=== PATIENT | male | born 1950 | race Caucasian/White ===

== ENCOUNTER 2017-12-31 07:42 | Outpatient (CLI) | payer MEDICARE, BC ==
[2017-12-31 13:15] LABS: BASOPHILS % (AUTO) 0.4 %; EOSINOPHILS # (AUTO) 0.1 10^3/uL (0.0-0.7); EOSINOPHILS % (AUTO) 1.8 %; HGB - HEMOGLOBIN 15.1 g/dL (14.0-18.0); LYMPHOCYTES # (AUTO) 2.3 10^3/uL (1.5-3.5); MEAN CORPUSCULAR HEMOGLOBIN 29.1 pg (27.0-31.0); MEAN CORPUSCULAR HGB CONC 33.4 g/dL (32.0-36.0); MEAN CORPUSCULAR VOLUME 87.4 fL (80.0-94.0); MEAN PLATELET VOLUME 8.1 fL (7.4-11.4); MONOCYTES # (AUTO) 0.7 10^3/uL (0.0-1.0); MONOCYTES % (AUTO) 12.6 %; NEUTROPHILS # (AUTO) 2.7 10^3/uL (1.5-6.6); NEUTROPHILS % (AUTO) 46.2 %; PLT - PLATELET COUNT 247 10^3/uL (130-450); RED CELL DISTRIBUTION WIDTH 14.1 % (12.0-15.0)
[2017-12-31 13:24] LABS: ALBUMIN 4.1 g/dL (3.2-5.5); ALBUMIN/GLOBULIN RATIO 1.5 (1.0-2.2); ALKALINE PHOSPHATASE 61 IU/L (42-121); ALT ALANINE AMINOTRANSFERASE 15 IU/L (10-60); AST ASPARTATE AMINOTRANSFERASE 21 IU/L (10-42); BUN - BLOOD UREA NITROGEN 14 mg/dL (6-20); CALCIUM 8.6 mg/dL (8.5-10.3); CARBON DIOXIDE - CO2 28 mmol/L (21-32); CHLORIDE 104 mmol/L (101-111); CHOL/HDL RATIO 3.6 (<5.0); CHOLESTEROL 202 mg/dL; CREATININE 1.1 mg/dL (0.6-1.2); GFR - MDRD 67 (>89); GLUCOSE 103 mg/dL (70-100); HDL CHOLESTEROL 56 mg/dL; LDL CHOLESTEROL,CALCULATED 134 mg/dL; LDL/HDL RATIO 2.4 (<3.6); SODIUM 137 mmol/L (135-145); TOTAL PROTEIN 6.9 g/dL (6.7-8.2); VLDL CHOLESTEROL 12 mg/dL
[2017-12-31 13:33] LABS: PLATELET ESTIMATE, MANUAL NORMAL (130-450,000) (NORMAL); PLATELET MORPHOLOGY NORMAL APPEARANCE (NORMAL); RBC MORPHOLOGY (MULTIPLE) NORMAL APPEARANCE (NORMAL)
== END 2017-12-31 07:43 | disposition home or self-care (01) ==
LOC: LAB.WCP 07:42
PROVIDERS: ATTEND Family Medicine
DX: R03.0 Elevated blood-pressure reading, without diagnosis of hypertension (principal); R73.9 Hyperglycemia, unspecified; E78.5 Hyperlipidemia, unspecified; Z12.5 Encounter for screening for malignant neoplasm of prostate; F32.9 Major depressive disorder, single episode, unspecified; E03.9 Hypothyroidism, unspecified
CPT/HCPCS: 36415; 80053; 80061; 85025; G0103; 83721; 84153

== ENCOUNTER 2018-05-05 15:39 | Emergency (ER) | payer MEDICARE, BC ==
[2018-05-05 15:50] VITALS: BP 133/81
[2018-05-05 15:58] LABS: BILIRUBIN,URINE NEGATIVE (NEGATIVE); GLUCOSE, URINE (UA) NEGATIVE (NEGATIVE); KETONES,URINE (UA) NEGATIVE (NEGATIVE); LEUKOCYTE ESTERASE, URINE NEGATIVE (NEGATIVE); NITRITE,URINE NEGATIVE (NEGATIVE); OCCULT BLOOD,URINE NEGATIVE (NEGATIVE); PROTEIN,URINE NEGATIVE (NEGATIVE); UROBILINOGEN,URINE 0.2 (NORMAL) E.U./dL (NORMAL)
[2018-05-05 16:01] LABS: CLARITY,URINE CLEAR (CLEAR)
[2018-05-05 16:09] LABS: BASOPHILS % (AUTO) 0.3 %; HGB - HEMOGLOBIN 14.6 g/dL (14.0-18.0); LYMPHOCYTES # (AUTO) 0.6 10^3/uL (1.5-3.5); LYMPHOCYTES % (AUTO) 8.6 %; MEAN CORPUSCULAR HEMOGLOBIN 29.4 pg (27.0-31.0); MEAN CORPUSCULAR HGB CONC 32.6 g/dL (32.0-36.0); MEAN CORPUSCULAR VOLUME 90.2 fL (80.0-94.0); MEAN PLATELET VOLUME 8.3 fL (7.4-11.4); MONOCYTES # (AUTO) 0.2 10^3/uL (0.0-1.0); MONOCYTES % (AUTO) 2.5 %; NEUTROPHILS # (AUTO) 6.2 10^3/uL (1.5-6.6); NEUTROPHILS % (AUTO) 88.6 %; PLT - PLATELET COUNT 261 10^3/uL (130-450); RED BLOOD COUNT 4.96 10^6/uL (4.70-6.10)
[2018-05-05 16:21] LABS: ALBUMIN 4.4 g/dL (3.2-5.5); ALBUMIN/GLOBULIN RATIO 1.5 (1.0-2.2); CREATININE 1.2 mg/dL (0.6-1.2); TOTAL PROTEIN 7.3 g/dL (6.7-8.2)
[2018-05-05] MEDS ORDERED: KETOROLAC 60 MG/2 ML VIAL IM STA (18:02)
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
[2018-05-05] MEDS ORDERED: CYCLOBENZAPRINE 10 MG TABLET PO STA (18:28)
== END 2018-05-05 18:31 | disposition home or self-care (01) ==
LOC: ED 15:39
DX: M62.830 Muscle spasm of back (principal)
CPT/HCPCS: 36415; 80053; 81003; 83690; 85025; 96372; 99283; A9270; 81001; 87086

== ENCOUNTER 2019-02-20 09:43 | Outpatient (CLI) | payer MEDICARE, BC ==
[2019-02-20 13:19] LABS: BASOPHILS % (AUTO) 0.2 %; EOSINOPHILS # (AUTO) 0.4 10^3/uL (0.0-0.7); EOSINOPHILS % (AUTO) 6.6 %; HGB - HEMOGLOBIN 14.9 g/dL (14.0-18.0); LYMPHOCYTES # (AUTO) 2.3 10^3/uL (1.5-3.5); LYMPHOCYTES % (AUTO) 38.7 %; MEAN CORPUSCULAR HEMOGLOBIN 29.4 pg (27.0-31.0); MEAN CORPUSCULAR HGB CONC 33.1 g/dL (32.0-36.0); MEAN CORPUSCULAR VOLUME 88.7 fL (80.0-94.0); MEAN PLATELET VOLUME 8.8 fL (7.4-11.4); MONOCYTES % (AUTO) 17.2 %; NEUTROPHILS # (AUTO) 2.2 10^3/uL (1.5-6.6); NEUTROPHILS % (AUTO) 37.3 %; PLT - PLATELET COUNT 221 10^3/uL (130-450); RED BLOOD COUNT 5.07 10^6/uL (4.70-6.10); RED CELL DISTRIBUTION WIDTH 14.5 % (12.0-15.0)
[2019-02-20 13:22] LABS: PSA SCREEN (Z12.5) 0.33 ng/mL (0.000-2.000)
[2019-02-20 13:23] LABS: ALBUMIN/GLOBULIN RATIO 1.3 (1.0-2.2); ALKALINE PHOSPHATASE 82 IU/L (42-121); ALT ALANINE AMINOTRANSFERASE 15 IU/L (10-60); AST ASPARTATE AMINOTRANSFERASE 22 IU/L (10-42); BILIRUBIN,TOTAL 0.6 mg/dL (0.2-1.0); BUN - BLOOD UREA NITROGEN 13 mg/dL (6-20); CALCIUM 8.9 mg/dL (8.5-10.3); CARBON DIOXIDE - CO2 28 mmol/L (21-32); CHLORIDE 101 mmol/L (101-111); CHOL/HDL RATIO 4.2 (<5.0); CHOLESTEROL 206 mg/dL; CREATININE 1.1 mg/dL (0.6-1.2); GFR - MDRD 67 (>89); GLUCOSE 95 mg/dL (70-100); HDL CHOLESTEROL 49 mg/dL; LDL CHOLESTEROL,CALCULATED 138 mg/dL; LDL/HDL RATIO 2.8 (<3.6); SODIUM 136 mmol/L (135-145); VLDL CHOLESTEROL 19 mg/dL
[2019-02-20 13:28] LABS: FREE T3 3.44 pg/mL (2.5-3.9)
[2019-02-20 14:16] LABS: FREE T4 (FREE THYROXINE) 1.37 ng/dL (0.58-1.64)
== END 2019-02-20 09:44 | disposition home or self-care (01) ==
LOC: LAB.WCP 09:43
PROVIDERS: ATTEND Family Medicine
DX: E78.5 Hyperlipidemia, unspecified (principal); E03.9 Hypothyroidism, unspecified; Z12.5 Encounter for screening for malignant neoplasm of prostate; Z79.899 Other long term (current) drug therapy
CPT/HCPCS: 36415; 80061; 84439; 84481; G0103; 80053; 83721; 84153; 84443; 85025

== ENCOUNTER 2019-04-01 10:05 | Day surgery (SDC) | payer MEDICARE, BC ==
[2019-04-01] MEDS ORDERED: LACTATED RINGERS 1,000 ML IV ONE (10:39)
[2019-04-01] MEDS ORDERED: fentaNYL 250 MCG/5 ML VIAL IVP ONE (11:52)
[2019-04-01] MEDS ORDERED: MIDAZOLAM 2 MG/2 ML VIAL IVP ONE (11:52)
[2019-04-01 12:52] VITALS: BP 105/72
== END 2019-04-01 10:06 | disposition home or self-care (01) ==
LOC: SDS 10:05
PROVIDERS: ATTEND Internal Medicine Gastroenterology
PROC: 0DJD8ZZ Inspection of Lower Intestinal Tract, Via Natural or Artificial Opening Endoscopic (ICD-10-PCS; principal; 2019-04-01 11:15)
DX: Z12.11 Encounter for screening for malignant neoplasm of colon (principal); K21.9 Gastro-esophageal reflux disease without esophagitis
CPT/HCPCS: G0121; J3010; J7120

== ENCOUNTER 2019-12-22 11:23 | Outpatient (CLI) | payer MEDICARE, BC ==
--- NOTE | 2019-12-23 10:05 | XRAY Report ---
Reason: COUGH Procedure Date: 12/22/2019 Accession Number: [id number] / [id number] Procedure: XR - Chest 2 View X-Ray CPT Code: 75883 Final Report FULL RESULT: EXAM: CHEST RADIOGRAPHY EXAM DATE: 12/22/2019 11:37 AM. CLINICAL HISTORY: Dry cough. Ill x4 weeks. COMPARISON: 10/17/2015. TECHNIQUE: 2 views. FINDINGS: Lungs/Pleura: Apical lordotic positioning. No focal opacities or vascular congestion. No pleural effusion or pneumothorax. Normal volumes. Mediastinum: Heart and mediastinal contours are unremarkable. Bones: No acute osseous findings identified. IMPRESSION: 1. No acute cardiopulmonary findings or significant change. RADIA
== END 2019-12-22 11:24 | disposition home or self-care (01) ==
LOC: DI 11:23
PROVIDERS: ATTEND Family Medicine
DX: R05 Cough (principal)
CPT/HCPCS: 71046

== ENCOUNTER 2019-12-24 08:09 | Emergency (ER) | payer MEDICARE, BC ==
--- NOTE | 2019-12-24 08:42 | XRAY Report ---
Reason: Cough Procedure Date: 12/24/2019 Accession Number: [id number] / [id number] Procedure: XR - Chest 2 View X-Ray CPT Code: 84868 Final Report FULL RESULT: EXAM: CHEST RADIOGRAPHY EXAM DATE: 12/24/2019 08:23 AM. CLINICAL HISTORY: Cough. COMPARISON: CHEST 2 VIEW 12/22/2019 11:32 AM. TECHNIQUE: 2 views. FINDINGS: Lungs/Pleura: Small area of increased density overlying the sixth anterior right rib could be a small infiltrate. No other focal opacities evident. No pleural effusion. No pneumothorax. Normal volumes. Mediastinum: Heart and mediastinal contours are unremarkable. Other: Degenerative change in the spine with lumbar dextroscoliosis.. IMPRESSION: Possible small area of infiltrate inferior right lung. No other potentially acute findings seen. RADIA
--- NOTE | 2019-12-24 09:04 | ED Physician Documentation ---
PD HPI URI - Stated complaint Stated Complaint: COUGH - Chief complaint Chief Complaint: Resp - History obtained from History obtained from: Patient - History of Present Illness Timing - onset: How many weeks ago (4) Timing duration: Weeks (4) Timing details: Gradual onset, Still present Associated symptoms: Productive cough (now somewhat productive with clear/white sputum). No: Fever Contributing factors: No: Sick contact, Travel, COPD / asthma Review of Systems Constitutional: denies: Fever, Chills Nose: denies: Rhinorrhea / runny nose, Congestion Throat: denies: Sore throat Cardiac: denies: Chest pain / pressure Respiratory: reports: Dyspnea, Cough. denies: Wheezing GI: denies: Nausea, Vomiting, Diarrhea Musculoskeletal: denies: Extremity swelling Neurologic: denies: Generalized weakness PD PAST MEDICAL HISTORY - Past Medical History Past Medical History: Yes Cardiovascular: None Respiratory: None Endocrine/Autoimmune: HyPOthyroidism GI: None : None HEENT: Other Psych: Depression Musculoskeletal: Osteoarthritis, Chronic back pain Derm: None - Past Surgical History Past Surgical History: Yes General: Appendectomy Ortho: ACL reconstruction - Present Medications Home Medications: Ambulatory Orders Medication Instructions Recorded Confirmed Levothyroxine Sodium [Synthroid] 175 mcg PO DAILY 08/05/13 04/01/19 Bupropion HCl [Wellbutrin Xl] 300 mg PO DAILY 10/17/15 04/01/19 Dutasteride [Avodart] 0.5 mg PO DAILY 10/17/15 04/01/19 Aspirin 81 mg PO DAILY 03/31/19 03/31/19 DULoxetine [Cymbalta] 20 mg PO DAILY 03/31/19 03/31/19 Doxycycline Monohydrate 100 mg PO BID #14 tablet 12/24/19 dexAMETHasone [Decadron] 4 mg PO DAILY #5 tablet 12/24/19 guaiFENesin/CODEINE [Robitussin AC] 10 ml PO Q6H PRN #240 ml 12/24/19 - Allergies Allergies/Adverse Reactions: Allergies Allergy/AdvReac Type Severity Reaction Status Date / Time No Known Drug Allergies Allergy Verified 12/24/19 08:16 - Social History Does the pt smoke?: No Smoking Status: Never smoker Does the pt drink ETOH?: Yes Does the pt have substance abuse?: No - Immunizations Immunizations are current?: No Immunizations: TDAP >10years/unknown - POLST Patient has POLST: No PD ED PE NORMAL - Vitals Vital signs reviewed: Yes - General General: Alert and oriented X 3, No acute distress, Well developed/nourished - HEENT HEENT: Pharynx benign - Neck Neck: Supple, no meningeal sign, No adenopathy - Cardiac Cardiac: RRR, No murmur - Respiratory Respiratory: Clear bilaterally - Derm Derm: Normal color, Warm and dry - Extremities Extremities: No edema, No calf tenderness / cord - Neuro Neuro: Alert and oriented X 3, No motor deficit, Normal speech Results - Vitals Vitals: Vital Signs - 24 hr 12/24/19 09:36 Temperature 36.5 C Heart Rate 68 Respiratory 15 Rate Blood Pressure 128/72 O2 Saturation 99 Oxygen O2 Source Room air - Rads (name of study) chest xray Radiology: Prelim report reviewed (possible small infiltrate right lower), See rad report PD MEDICAL DECISION MAKING - ED course Complexity details: considered differential, d/w patient Departure - Departure Disposition: 01 Home, Self Care Clinical Impression: Persistent cough, Infiltrate of lung present on chest x-ray Condition: Stable Record reviewed to determine appropriate education?: Yes Follow-Up: Kennedy Norton DO [Primary Care Provider] - Prescriptions: dexAMETHasone [Decadron] 4 mg PO DAILY #5 tablet Doxycycline Monohydrate 100 mg PO BID #14 tablet guaiFENesin/CODEINE [Robitussin AC] 10 ml PO Q6H PRN #240 ml PRN Reason: Cough Comments: You can continue the benzonatate (Tessalon) 3-4 times a day as needed for cough. 2 would add Robitussin with codeine to help with cough suppression. To reduce the bronchial inflammation and irritation, use the Decadron steroid daily for 5 more days. Your chest x-ray showed a small patch of infiltrate in the right lower area which could represent a mild pneumonia so add doxycycline antibiotic as well. Recheck if not improving well over the next several days to week. Discharge Date/Time: 12/24/19 09:47
[2019-12-24] MEDS ORDERED: DOXYCYCLINE 100 MG TABLET PO STA (09:25)
[2019-12-24] MEDS ORDERED: CHERRY SYRUP 10 ML UDC PO ONE (09:25)
[2019-12-24] MEDS ORDERED: DEXAMETHASONE 10 MG/ML VIAL PO STA (09:25)
[2019-12-24 09:37] VITALS: BP 128/72
== END 2019-12-24 09:47 | disposition home or self-care (01) ==
LOC: ED 08:09
DX: R05 Cough (principal); R91.8 Other nonspecific abnormal finding of lung field
CPT/HCPCS: 71046; 99283; 99284; A9270

== ENCOUNTER 2020-07-07 19:46 | Outpatient (CLI) | payer MEDICARE, BC ==
--- NOTE | 2020-07-08 12:26 | XRAY Report ---
PROCEDURE: Hip w/Pelvis 1V RT INDICATIONS: Right hip pain TECHNIQUE: AP pelvis with lateral view of the right hip. COMPARISON: CT abdomen pelvis 04/09/2014. FINDINGS: Bones: No fractures or dislocations. The hip joint spaces appear preserved. Pelvic ring appears int act. No suspicious bony lesions. There is facet arthropathy and degenerative disc disease within th e visualized lower lumbar spine. Soft tissues: The visualized bowel gas pattern is normal. No suspicious soft tissue calcifications. IMPRESSION: 1. No acute bony abnormality. Reviewed by: Francisco Dye MD on 07/08/2020 12:25 PM PDT Approved by: Francisco Dye MD on 07/08/2020 12:25 PM PDT Station ID: [id number]
--- NOTE | 2020-07-08 12:41 | XRAY Report ---
PROCEDURE: Foot 3 View RT INDICATIONS: RIGHT FOOT PAIN TECHNIQUE: 3 views of the foot were acquired. COMPARISON: None. FINDINGS: Bones: No fractures or dislocations. No suspicious bony lesions. Soft tissues: No tibiotalar joint effusion. Achilles tendon appears normal. IMPRESSION: 1. No fracture or dislocation. Reviewed by: Francisco Dye MD on 07/08/2020 12:39 PM PDT Approved by: Francisco Dye MD on 07/08/2020 12:39 PM PDT Station ID: [id number]
== END 2020-07-07 19:47 | disposition home or self-care (01) ==
LOC: DI 19:46
PROVIDERS: ATTEND Physician Assistant
DX: M79.671 Pain in right foot (principal); M25.551 Pain in right hip

== ENCOUNTER 2020-07-28 10:42 | Outpatient (CLI) | payer MEDICARE, BC | END 2020-07-28 10:43 | disposition home or self-care (01) | LOC: LAB 10:42 | PROVIDERS: ATTEND Urology | DX: Z12.5 Encounter for screening for malignant neoplasm of prostate (principal) | CPT/HCPCS: 36415; G0103; 84153 ==

== ENCOUNTER 2020-09-27 10:25 | Outpatient (CLI) | payer MEDICARE, BC | END 2020-09-27 23:59 | disposition home or self-care (01) | LOC: LAB.R 10:25 | PROVIDERS: ATTEND Family Medicine | DX: R05 Cough (principal); Z20.828 Contact with and (suspected) exposure to other viral communicable diseases ==

== ENCOUNTER 2020-12-06 09:21 | Outpatient (CLI) | payer MEDICARE, OTHER ==
--- NOTE | 2020-12-06 14:54 | XRAY Report ---
PROCEDURE: Hand 3 View RT INDICATIONS: R HAND PX TECHNIQUE: 3 views of the hand(s) acquired. COMPARISON: None FINDINGS: Bones: No fractures or dislocations. No suspicious bony lesions. Mild scattered IP degenerative na rrowing with moderate narrowing at the first CMC joint. There is mild cluster of calcifications noted along the lateral aspect of the first CMC joint. Soft tissues: No suspicious soft tissue calcifications. IMPRESSION: Degenerative changes most notable at the first CMC joint as above with adjacent calcifications. The l atter could be related to old trauma. Reviewed by: Macey Portillo MD on 12/06/2020 2:52 PM PST Approved by: Macey Portillo MD on 12/06/2020 2:52 PM PST Station ID: [id number]
== END 2020-12-06 23:59 | disposition home or self-care (01) ==
LOC: DI.N 09:21
PROVIDERS: ATTEND Physician Assistant
DX: M79.641 Pain in right hand (principal); M19.041 Primary osteoarthritis, right hand

== ENCOUNTER 2021-04-06 08:40 | Outpatient (CLI) | payer MEDICARE, OTHER ==
[2021-04-06 11:54] LABS: BASOPHILS % (AUTO) 0.7 %; EOSINOPHILS # (AUTO) 0.2 10^3/uL (0.0-0.7); EOSINOPHILS % (AUTO) 3.4 %; HCT - HEMATOCRIT 47.2 % (42.0-52.0); HGB - HEMOGLOBIN 14.8 g/dL (14.0-18.0); LYMPHOCYTES # (AUTO) 1.9 10^3/uL (1.5-3.5); LYMPHOCYTES % (AUTO) 36.1 %; MEAN CORPUSCULAR HEMOGLOBIN 28.8 pg (27.0-31.0); MEAN CORPUSCULAR HGB CONC 31.4 g/dL (32.0-36.0); MEAN PLATELET VOLUME 10.5 fL (7.4-11.4); MONOCYTES # (AUTO) 0.8 10^3/uL (0.0-1.0); NEUTROPHILS # (AUTO) 2.4 10^3/uL (1.5-6.6); NEUTROPHILS % (AUTO) 45.6 %; PLT - PLATELET COUNT 255 10^3/uL (130-450); RED BLOOD COUNT 5.13 10^6/uL (4.70-6.10); RED CELL DISTRIBUTION WIDTH 13.7 % (12.0-15.0); WHITE BLOOD COUNT 5.3 x10^3/uL (4.8-10.8)
[2021-04-06 12:13] LABS: ALBUMIN 4.4 g/dL (3.2-5.5); ALBUMIN/GLOBULIN RATIO 1.8 (1.0-2.2); ALKALINE PHOSPHATASE 77 IU/L (42-121); ALT ALANINE AMINOTRANSFERASE 16 IU/L (10-60); AST ASPARTATE AMINOTRANSFERASE 23 IU/L (10-42); BILIRUBIN,TOTAL 0.6 mg/dL (0.2-1.0); BUN - BLOOD UREA NITROGEN 22 mg/dL (6-20); CALCIUM 9.4 mg/dL (8.5-10.3); CARBON DIOXIDE - CO2 28 mmol/L (21-32); CHLORIDE 103 mmol/L (101-111); CHOL/HDL RATIO 3.7 (<5.0); CHOLESTEROL 223 mg/dL; CREATININE 1.2 mg/dL (0.6-1.2); GFR - MDRD 60 (>89); GLUCOSE 97 mg/dL (70-100); HDL CHOLESTEROL 60 mg/dL; LDL CHOLESTEROL,CALCULATED 147 mg/dL; LDL/HDL RATIO 2.5 (<3.6); POTASSIUM 4.6 mmol/L (3.5-5.0); SODIUM 141 mmol/L (135-145); TOTAL PROTEIN 6.9 g/dL (6.7-8.2); TRIGLYCERIDES 80 mg/dL; VLDL CHOLESTEROL 16 mg/dL
[2021-04-06 12:18] LABS: THYROID STIMULATING HORMONE < 0.08 uIU/mL (0.34-5.60)
[2021-04-06 12:53] LABS: FREE T4 (FREE THYROXINE) 1.38 ng/dL (0.58-1.64)
== END 2021-04-06 23:59 | disposition home or self-care (01) ==
LOC: LAB.WCP 08:40
PROVIDERS: ATTEND Family Medicine
DX: E78.5 Hyperlipidemia, unspecified (principal); E03.9 Hypothyroidism, unspecified; K21.9 Gastro-esophageal reflux disease without esophagitis; N40.1 Benign prostatic hyperplasia with lower urinary tract symptoms; N13.8 Other obstructive and reflux uropathy
CPT/HCPCS: 36415; 80053; 80061; 83721; 84153; 84439; 84443; 85025

== ENCOUNTER 2021-04-28 07:00 | Outpatient (CLI) | payer MEDICARE, OTHER | END 2021-04-28 23:59 | disposition home or self-care (01) | LOC: COV 07:00 | PROVIDERS: ATTEND Family Medicine | DX: M79.10 Myalgia, unspecified site (principal); R53.83 Other fatigue; R07.0 Pain in throat; Z20.822 Contact with and (suspected) exposure to COVID-19 ==

== ENCOUNTER 2021-05-10 08:32 | Emergency (ER) | payer MEDICARE, OTHER ==
[2021-05-10 08:47] VITALS: BP 135/78
--- NOTE | 2021-05-10 10:17 | ED Physician Documentation ---
PD HPI LOWER EXT INJURY - Stated complaint Stated Complaint: LT LEG INJ - Chief complaint Chief Complaint: Ext Problem - History obtained from History obtained from: Patient - History of Present Illness PD HPI LOW EXT INJURY LOCATION: Left, Calf Type of injury: Twist (he fell and felt abrupt pain lateral mid calf muscles. Pain with walking. No foot drop.) Worsened by: Moving, Palpating, Other (walking) Associated symptoms: No: Weakness, Numbness, Tingling Contributing factors: No: Anticoagulated, Prior ortho surgery Similar symptoms before: Follow up Recently seen: Not recently seen Review of Systems Skin: denies: Abrasion (s), Laceration (s) Neurologic: denies: Focal weakness, Numbness, Altered mental status, Headache, Head injury, LOC PD PAST MEDICAL HISTORY - Past Medical History Past Medical History: Yes Cardiovascular: None Respiratory: None Neuro: None Endocrine/Autoimmune: HyPOthyroidism GI: None : None HEENT: Other Psych: Depression Musculoskeletal: Osteoarthritis, Chronic back pain Derm: None - Past Surgical History Past Surgical History: Yes General: Appendectomy Ortho: ACL reconstruction - Present Medications Home Medications: Ambulatory Orders Medication Instructions Recorded Confirmed Levothyroxine Sodium [Synthroid] 175 mcg PO DAILY 08/05/13 05/10/21 Bupropion HCl [Wellbutrin Xl] 300 mg PO DAILY 10/17/15 05/10/21 Aspirin 81 mg PO DAILY 03/31/19 05/10/21 DULoxetine [Cymbalta] 20 mg PO DAILY 03/31/19 05/10/21 HYDROcod/ACETAM 5/325 [Acampo 5/325] 1 ea PO Q6H PRN #10 tablet 05/10/21 - Allergies Allergies/Adverse Reactions: Allergies Allergy/AdvReac Type Severity Reaction Status Date / Time No Known Drug Allergies Allergy Verified 05/10/21 08:47 - Social History Does the pt smoke?: No Smoking Status: Never smoker Does the pt drink ETOH?: Yes Does the pt have substance abuse?: No - Immunizations Immunizations are current?: No Immunizations: TDAP >10years/unknown - POLST Patient has POLST: No PD ED PE NORMAL - Vitals Vital signs reviewed: Yes - General General: Alert and oriented X 3, No acute distress (limping gait into ER room. ), Well developed/nourished - HEENT HEENT: Atraumatic - Neck Neck: Supple, no meningeal sign, No bony TTP - Derm Derm: Normal color, Warm and dry - Extremities Extremities: Other (left lateral mid calf with some swelling and tenderness. Not tendeer nor any deformity at lower third Tendon area. ) - Neuro Neuro: Alert and oriented X 3, No motor deficit, No sensory deficit Results - Vitals Vitals: Oxygen O2 Source Room air - Rads (name of study) lower leg xray Radiology: Prelim report reviewed (no fractures), See rad report PD MEDICAL DECISION MAKING - ED course Complexity details: reviewed results, considered differential, d/w patient Departure - Departure Disposition: Home, Self Care Clinical Impression: Fall from slip, trip, or stumble Qualifiers: Encounter type: initial encounter Qualified Code(s): W01.0XXA - Fall on same level from slipping, tripping and stumbling without subsequent striking against object, initial encounter Strain of calf muscle Qualifiers: Encounter type: initial encounter Laterality: left Qualified Code(s): S86.812A - Strain of other muscle(s) and tendon(s) at lower leg level, left leg, initial encounter Condition: Stable Record reviewed to determine appropriate education?: Yes Instructions: ED Strain Muscle Ext Follow-Up: Kennedy Norton DO [Primary Care Provider] - Jose Martinez MD [Provider Admit Priv/Credential] - Prescriptions: HYDROcod/ACETAM 5/325 [Acampo 5/325] 1 ea PO Q6H PRN #10 tablet PRN Reason: Pain Comments: Your x-ray is normal without any sign of bony injury. Your history and exam are consistent with a partial tear of the calf muscle. This would be treated with conservative measures of partial to no weightbearing as needed for comfort, Kenan wrap for the area. Time to heal as often 3 to 4 weeks with progressive use of the calf muscles (i.e. walking and increased activity) as tolerated. No prolonged walking or more stressful use of the muscle such as jogging running or ladders etc. for 2 to 3 weeks anyway. Anti-inflammatory such as ibuprofen or naproxen 2-3 times a day. Add Tylenol or hydrocodone as needed for pain in the short-term. Crutches as needed for partial to no weightbearing and progress as able. Follow-up with your primary care or orthopedics in the next week or 2 if not having considerable improvement though again it can take a good month or more to fully heal back to normal Discharge Date/Time: 05/10/21 11:29
[2021-05-10] MEDS: HYDROcod/ACETAM 5/325 MG TABLET PO STA (10:51)
[2021-05-10] MEDS: IBUPROFEN 600 MG TABLET PO STA (10:51)
--- NOTE | 2021-05-10 11:07 | XRAY Report ---
PROCEDURE: Tib/Fib LT INDICATIONS: left calf pain with fall yesterday TECHNIQUE: 2 views of the tibia and fibula were acquired. COMPARISON: None. FINDINGS: Bones: Prior left ACL repair is noted with post surgical changes. No gross hardware loosening or fail ure. Mild to moderate tricompartmental osteoarthritis in left knee is seen. Mild osteoarthritic murcia es in tibiotalar joint is also noted. No fractures or dislocations. No suspicious bony lesions. Soft tissues: No suspicious soft tissue calcifications or masses. IMPRESSION: No acute left lower leg fracture or dislocation. Left knee and ankle joint osteoarthritis as above. Reviewed by: Brian Hdz MD on 05/10/2021 11:06 AM PDT Approved by: Brian Hdz MD on 05/10/2021 11:06 AM PDT Station ID: [id number]
== END 2021-05-10 11:29 | disposition home or self-care (01) ==
LOC: ED 08:32
DX: S86.812A Strain of other muscle(s) and tendon(s) at lower leg level, left leg, initial encounter (principal); W01.0XXA Fall on same level from slipping, tripping and stumbling without subsequent striking against object, initial encounter; M19.072 Primary osteoarthritis, left ankle and foot; M17.12 Unilateral primary osteoarthritis, left knee; Z79.82 Long term (current) use of aspirin
CPT/HCPCS: 73590; 99283; A9270

== ENCOUNTER 2021-10-02 10:11 | Emergency (ER) | payer MEDICARE, OTHER ==
[2021-10-02 10:45] VITALS: BP 146/92
--- NOTE | 2021-10-02 11:29 | XRAY Report ---
PROCEDURE: Chest 2 View X-Ray INDICATIONS: cough TECHNIQUE: 2 views of the chest. COMPARISON: None. FINDINGS: Surgical changes and devices: None. Lungs and pleura: No pleural effusions or pneumothorax. Lungs are clear. Mediastinum: Mediastinal contours are normal. Heart size is normal. Bones and chest wall: No suspicious bony abnormalities. Soft tissues appear unremarkable. IMPRESSION: 1. No acute cardiopulmonary disease. Reviewed by: Francisco Dye MD on 10/02/2021 10:28 AM [facility] Approved by: Francisco Dye MD on 10/02/2021 10:28 AM [facility] Station ID: [id number]
--- NOTE | 2021-10-02 12:45 | ED Physician Documentation ---
History of Present Illness - Stated complaint Stated Complaint: COUGH/DIZZINESS - Chief complaint Chief Complaint: Resp - Additonal information Additional information: 71-year-old male presents emergency department for evaluation of sinus pressure and congestion for about 2 weeks as well as a cough that is productive for about 3 weeks cough is mostly at night when supine. However he is also concerned because he has had progressive dizziness for the last 6 months. He often feels that he is drunk when walking. He will list to the left. He often has dizziness. Sometimes as he walks he feels that the room is spinning and he has to stop to steady himself. He has begun to have some skab-imy-cnqstxt sensation in his hands and feet. Past medical history is most significant for thyroid disorder for which she is on levothyroxine. No history of hypertension or diabetes. Non-smoker. Rare alcohol use. Review of Systems Constitutional: denies: Fever, Chills Eyes: reports: Reviewed and negative Ears: denies: Loss of hearing, Ear pain, Drainage/discharge, Foreign body Nose: reports: Congestion Throat: reports: Reviewed and negative Cardiac: denies: Chest pain / pressure, Palpitations, Pedal edema Respiratory: denies: Dyspnea, Cough, Hemoptysis, Wheezing GI: reports: Abdominal Pain. denies: Vomiting, Constipation, Diarrhea : denies: Dysuria, Frequency, Hesitancy Skin: denies: Rash, Lesions Musculoskeletal: denies: Neck pain, Back pain, Extremity pain Neurologic: reports: Other (Dizzy, off balance, exap-egw-hrycewq in hands and feet). denies: Generalized weakness, Difficulty speaking, Near syncope, Syncope, Seizure, Confused, Headache, Head injury PD PAST MEDICAL HISTORY - Past Medical History Cardiovascular: None Respiratory: None Neuro: None Endocrine/Autoimmune: HyPOthyroidism GI: None : None HEENT: Other Psych: Depression Musculoskeletal: Osteoarthritis, Chronic back pain Derm: None - Past Surgical History Past Surgical History: Yes General: Appendectomy Ortho: ACL reconstruction - Present Medications Home Medications: Ambulatory Orders Medication Instructions Recorded Confirmed Levothyroxine Sodium [Synthroid] 175 mcg PO DAILY 08/05/13 05/10/21 Bupropion HCl [Wellbutrin Xl] 300 mg PO DAILY 10/17/15 05/10/21 Aspirin 81 mg PO DAILY 03/31/19 05/10/21 DULoxetine [Cymbalta] 20 mg PO DAILY 03/31/19 05/10/21 HYDROcod/ACETAM 5/325 [[place] 5/325] 1 ea PO Q6H PRN #10 tablet 05/10/21 Benzonatate [Tessalon] 100 mg PO TID PRN #30 cap 10/02/21 - Allergies Allergies/Adverse Reactions: Allergies Allergy/AdvReac Type Severity Reaction Status Date / Time No Known Drug Allergies Allergy Verified 10/02/21 10:45 - Social History Does the pt smoke?: No Smoking Status: Never smoker Does the pt drink ETOH?: Yes Does the pt have substance abuse?: No - Immunizations Immunizations are current?: No Immunizations: TDAP >10years/unknown - POLST Patient has POLST: No PD ED PE EXPANDED - General General: Alert, No acute distress - HEENT HEENT: Atraumatic, PERRL, EOMI, Ears normal, Moist mucous membranes, Pharyngeal erythema - Neck Neck: Supple w/out meningeal sx. No: Adenopathy - Cardiac Cardiac: Regular Rate, Radial strong equal, Cap refill < 2 sec. No: Murmur Present - Respiratory Respiratory: Clear to ausultation pawel. No: Distress, Labored - Abdomen Abdomen: Normal Bowel sounds. No: Tender to palpation - Extremities Extremities: Normal. No: Deformity, Tenderness - Neuro Neuro: Alert and Oriented X 3, CNII-XII intact, Normal finger nose, Normal speech. No: Nystagmus, Normal gait (Patient will begin to list to the left after walking about 50 feet. Unable to perform heel toe) - GCS Eye Opening: Spontaneous Motor: Obeys Commands Verbal: Oriented Total: 15 Results - Vitals Vitals: Vital Signs - 24 hr 10/02/21 10:43 Temperature 36.1 C L Heart Rate 73 Respiratory 16 Rate Blood Pressure 146/92 H O2 Saturation 99 Oxygen O2 Source Room air - Labs Labs: Laboratory Tests 10/02/21 10/02/21 10/02/21 12:58 12:58 12:58 WBC 8.2 RBC 4.93 Hgb 14.9 Hct 44.5 MCV 90.3 MCH 30.2 MCHC 33.5 RDW 13.8 Plt Count 287 MPV 9.2 Neut # (Auto) 4.9 Lymph # (Auto) 2.0 Harris # (Auto) 1.0 Eos # (Auto) 0.3 Baso # (Auto) 0.0 Absolute Nucleated RBC 0.00 Nucleated RBC % 0.0 Sodium 139 Potassium 4.0 Chloride 100 L Carbon Dioxide 29 Anion Gap 10.0 BUN 12 Creatinine 1.0 Estimated GFR (MDRD) 74 L Glucose 100 Calcium 9.0 Total Bilirubin 0.7 AST 19 ALT 15 Alkaline Phosphatase 69 Total Protein 7.1 Albumin 4.0 Globulin 3.1 Albumin/Globulin Ratio 1.3 Lipase 23 Vitamin B12 340 TSH < 0.08 L Thyroxine (T4) 10/02/21 12:58 WBC RBC Hgb Hct MCV MCH MCHC RDW Plt Count MPV Neut # (Auto) Lymph # (Auto) Harris # (Auto) Eos # (Auto) Baso # (Auto) Absolute Nucleated RBC Nucleated RBC % Sodium Potassium Chloride Carbon Dioxide Anion Gap BUN Creatinine Estimated GFR (MDRD) Glucose Calcium Total Bilirubin AST ALT Alkaline Phosphatase Total Protein Albumin Globulin Albumin/Globulin Ratio Lipase Vitamin B12 TSH Thyroxine (T4) 9.63 - Rads (name of study) angio neck Radiology: Final report received (No high-grade stenosis or occlusion of the head and neck arteries.) angio head Radiology: Final report received (No acute intracranial abnormality. No high- grade stenosis or occlusion of the central intracranial arteries) PD MEDICAL DECISION MAKING - ED course Complexity details: reviewed results, re-evaluated patient, considered differential, d/w patient ED course: 71-year-old male presents emergency department for evaluation of 2 concerns The first 1 is that of dizziness feeling off balance and an altered gait for approximately 6 months. He states that he often has a difficult time walking a straight line. Though he does not drink sometimes he feels as though he is intoxicated. No tinnitus or ringing of the ears no ear pain. On presentation he has no obvious focal neuro deficits. He had normal fluid speech normal finger-nose. However he did seem to have a wide-based gait that veered to the left. CT angio of the head neck showed no significant intracranial stenosis or lesions. Patient has also reported that he Has been developing some pins and needle sensations in his hands and feet. He does have a known thyroid disorder. Though TSH is low his free T4 is normal. No significant electrolyte abnormality. No anemia. Patient is advised to follow-up there is progressive dizziness and mild ataxia with his primary care provider. Further evaluation with an MRI may be warranted and/or referral to a neurologist. Patient second concern is that of nasal congestion for 3 weeks with a cough. Chest x-ray does not show acute focal opacities. Patient would like to defer antibiotics if possible. His cough is worse at night and I suspect is likely secondary to postnasal drip. I will recommend some Sudafed during the day as well as Benadryl at night with Flonase. Prescription for Tessalon Perles will be sent to the pharmacy. Emergent return precautions otherwise discussed. Departure - Departure Disposition: Home, Self Care Clinical Impression: Ataxia, Dizziness, Congestion of nasal sinus, Cough Condition: Stable Record reviewed to determine appropriate education?: Yes Follow-Up: Kennedy Norton DO [Primary Care Provider] - Prescriptions: Benzonatate [Tessalon] 100 mg PO TID PRN #30 cap PRN Reason: Cough Comments: Samuel weiner were seen in the emergency department today for worsening dizziness over the last 6 months with changes in your walk. This is called ataxia. We did CT angiogram of your head and neck that did not show any stenosis or lesions. Your B12 level was normal. Your thyroid/free T4 was normal indicating your levothyroxine is dosed appropriately. There are multiple other causes for the sensation of dizziness as well as a change in your gait. Please discuss this with Dr. Norton. You may benefit from further evaluation with an MRI of your head and neck and/or referral to a neurologist. Your chest x-ray did not show signs of pneumonia. I suspect that the cough is worse at night because of postnasal drip. I recommend that you take 25 to 50 mg of Benadryl at night before sleep. Using some Flonase nasal spray about an hour before bedtime can also help with congestion. A dose or 2 of Sudafed hayk-tjn-ntbnqit can also help with the congestion. I have sent a prescription for Tessalon Perles to the [facility] in [place]. This is a cough suppressant. If at any point you develop fevers, have chest pain, shortness of air, develop any fainting episodes, slurred speech arm or leg weakness then please return immediately to the ER for a second evaluation.
[2021-10-02 13:06] LABS: BASOPHILS % (AUTO) 0.5 %; EOSINOPHILS # (AUTO) 0.3 10^3/uL (0.0-0.7); HCT - HEMATOCRIT 44.5 % (42.0-52.0); HGB - HEMOGLOBIN 14.9 g/dL (14.0-18.0); LYMPHOCYTES % (AUTO) 24.5 %; MEAN CORPUSCULAR HEMOGLOBIN 30.2 pg (27.0-31.0); MEAN CORPUSCULAR HGB CONC 33.5 g/dL (32.0-36.0); MEAN CORPUSCULAR VOLUME 90.3 fL (80.0-94.0); MEAN PLATELET VOLUME 9.2 fL (7.4-11.4); MONOCYTES % (AUTO) 11.8 %; NEUTROPHILS # (AUTO) 4.9 10^3/uL (1.5-6.6); NEUTROPHILS % (AUTO) 59.1 %; PLT - PLATELET COUNT 287 10^3/uL (130-450); RED BLOOD COUNT 4.93 10^6/uL (4.70-6.10); RED CELL DISTRIBUTION WIDTH 13.8 % (12.0-15.0); WHITE BLOOD COUNT 8.2 x10^3/uL (4.8-10.8)
[2021-10-02] MEDS ORDERED: IOVERSOL 320 100 ML VIAL IVP ONE ×2 (13:12→14:18)
[2021-10-02 13:17] LABS: ALBUMIN/GLOBULIN RATIO 1.3 (1.0-2.2); BILIRUBIN,TOTAL 0.7 mg/dL (0.2-1.0); TOTAL PROTEIN 7.1 g/dL (6.7-8.2)
[2021-10-02 13:33] LABS: THYROID STIMULATING HORMONE < 0.08 uIU/mL (0.34-5.60)
--- NOTE | 2021-10-02 14:24 | CT Report ---
PROCEDURE: ANGIO HEAD W/WO INDICATIONS: L sided facial droop CONTRAST: IV CONTRAST: Optiray 320 ml: 80 PO CONTRAST: *NO PO CONTRAST TECHNIQUE: Precontrast 4.5 mm thick angled axial sections acquired from the foramen magnum to the vertex. Afte r the administration of intravenous contrast, 1 mm thick sections acquired through the [place] is. Postcontrast 4.5 mm thick sections then re-acquired from the foramen magnum to the vertex. 3-di mensional kovoaww-vfmlibtrp-ejhickbzmr (MIP) and/or volume rendering reformats were acquired of the c entral intracranial vasculature. For radiation dose reduction, the following was used: automated ex posure control, adjustment of mA and/or kV according to patient size. COMPARISON: CT head 08/05/2013 FINDINGS: Image quality: Excellent. CSF spaces: Basal cisterns are patent. No extra-axial fluid collections. Ventricles are normal in size and shape. Brain: No intracranial hemorrhage, mass, or mass effect. Marie-white matter interface appears preser eamon. No abnormal cranial enhancement. Skull and face: Calvarium and facial bones appear intact, without suspicious lesions. Sinuses: Visualized sinuses demonstrate mild mucosal thickening within the ethmoid sinuses. The mast oid air cells are clear. Anterior circulation: Intracranial internal carotid arteries are patent bilaterally. The paired ant erior cerebral arteries are patent bilaterally. The middle cerebral arteries is patent. The anterio r communicating artery is patent. No high-grade stenosis, occlusion, or discrete filling defects. No cerebral aneurysm identified. Posterior circulation: Visualized portions of the vertebral arteries appear patent and join to form a patent basilar artery. The posterior cerebral arteries are patent bilaterally. No high-grade steno sis, occlusion, or discrete filling defects. No cerebral aneurysm identified. IMPRESSION: 1. No acute intracranial abnormality. 2. No high-grade stenosis or occlusion of the central intracranial arteries. Reviewed by: Francisco Dye MD on 10/02/2021 1:23 PM [facility] Approved by: Francisco Dye MD on 10/02/2021 1:23 PM [facility] Station ID: [id number]
--- NOTE | 2021-10-02 14:28 | CT Report ---
PROCEDURE: ANGIO NECK W INDICATIONS: L sided facial droop, L neck pain CONTRAST: IV CONTRAST: Optiray 320 ml: 80 PO CONTRAST: *NO PO CONTRAST TECHNIQUE: After the administration of intravenous contrast, 1.5 mm axial sections acquired from the aortic arch to the [place]. Coronal 3-D maximum intensity projection (MIP) and/or volume rendering ref ormats were then performed. For radiation dose reduction, the following was used: automated exposur e control, adjustment of mA and/or kV according to patient size. COMPARISON: None. FINDINGS: Image quality: Excellent. Carotid system: The great vessels demonstrate a conventional anatomy as they arise from the aortic a rch. The origins of the common carotid arteries appear patent. The common carotid arteries demonstr ate normal calibers and courses. The bifurcation regions appear widely patent bilaterally. The inte rnal carotid arteries demonstrate normal caliber and course. Posterior circulation: The origins of the vertebral arteries appear patent. The more superior porti ons of the vertebral arteries demonstrate normal course and also appear patent. There is a small shor t segment fenestration within the distal right vertebral artery. There vertebral arteries join to for m a patent basilar artery. Soft tissues: Visualized neck soft tissues demonstrate no suspicious abnormalities. The thyroid is normal in size and there are no incidental findings. Bones: No suspicious bony lesions. Visualized cervical spine demonstrates straightening of the cerv ical lordosis. There is moderate multilevel degenerative disc disease and facet arthropathy throughou t the cervical spine. IMPRESSION: 1. No high-grade stenosis or occlusion of the head and neck arteries. 2. 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 The estimate of stenosis included in the report of the imaging study was calculated using the NASCET method Reviewed by: Francisco Dye MD on 10/02/2021 1:27 PM [facility] Approved by: Francisco Dye MD on 10/02/2021 1:27 PM [facility] Station ID: [id number]
== END 2021-10-02 15:18 | disposition home or self-care (01) ==
LOC: ED 10:11
DX: R20.2 Paresthesia of skin (principal); R27.0 Ataxia, unspecified; R09.81 Nasal congestion; R05.9 Cough, unspecified
CPT/HCPCS: 36415; 70496; 70498; 71046; 80053; 82607; 83690; 84436; 84443; 85025; 99282; 99284; Q9967

== ENCOUNTER 2021-10-04 19:53 | Emergency (ER) | payer MEDICARE, OTHER ==
[2021-10-04] MEDS ORDERED: predniSONE 20 MG TABLET PO STA (20:54)
--- NOTE | 2021-10-04 20:58 | ED Physician Documentation ---
History of Present Illness - Stated complaint Stated Complaint: POST SHOT REACTION - Chief complaint Chief Complaint: General - History obtained from History obtained from: Patient - History of Present Illness Timing: Today Pain level max: 0 Pain level now: 0 - Additonal information Additional information: 71-year-old male presents to the emergency department stating he had a allergy shot today, then developed hives. He states no difficulty breathing, speaking. No stridor. No wheezing. Took Benadryl prior to arrival. He also complains of a chronic ongoing cough. He states the Tessalon is not helping and would like something else for the cough. Review of Systems Constitutional: denies: Fever, Chills Throat: denies: Sore throat Cardiac: denies: Chest pain / pressure Respiratory: reports: Cough (Dry). denies: Dyspnea, Hemoptysis, Wheezing GI: denies: Nausea, Vomiting, Diarrhea Neurologic: denies: Headache PD PAST MEDICAL HISTORY - Past Medical History Cardiovascular: None Respiratory: None Neuro: None Endocrine/Autoimmune: HyPOthyroidism GI: None : None HEENT: Other Psych: Depression Musculoskeletal: Osteoarthritis, Chronic back pain Derm: None - Past Surgical History Past Surgical History: Yes General: Appendectomy Ortho: ACL reconstruction - Present Medications Home Medications: Ambulatory Orders Medication Instructions Recorded Confirmed Levothyroxine Sodium [Synthroid] 175 mcg PO DAILY 08/05/13 05/10/21 Bupropion HCl [Wellbutrin Xl] 300 mg PO DAILY 10/17/15 05/10/21 Aspirin 81 mg PO DAILY 03/31/19 05/10/21 DULoxetine [Cymbalta] 20 mg PO DAILY 03/31/19 05/10/21 HYDROcod/ACETAM 5/325 [[place] 5/325] 1 ea PO Q6H PRN #10 tablet 05/10/21 Benzonatate [Tessalon] 100 mg PO TID PRN #30 cap 10/02/21 Guaifenesin/Dextromethorphan 10 ml PO Q6H PRN #1 bottle 10/04/21 [Robitussin Cough-Chest Dm Liq] predniSONE [Deltasone] 40 mg PO DAILY #10 tablet 10/04/21 - Allergies Allergies/Adverse Reactions: Allergies Allergy/AdvReac Type Severity Reaction Status Date / Time No Known Drug Allergies Allergy Verified 10/04/21 20:08 - Social History Does the pt smoke?: No Smoking Status: Never smoker Does the pt drink ETOH?: Yes Does the pt have substance abuse?: No - Immunizations Immunizations are current?: No Immunizations: TDAP >10years/unknown - POLST Patient has POLST: No PD ED PE NORMAL - Vitals Vital signs reviewed: Yes - General General: Alert and oriented X 3, No acute distress - HEENT HEENT: Moist mucous membranes, Pharynx benign - Neck Neck: Supple, no meningeal sign - Cardiac Cardiac: RRR, Strong equal pulses - Respiratory Respiratory: No respiratory distress, Clear bilaterally - Abdomen Abdomen: Soft, Non tender, Non distended - Derm Derm: Warm and dry, Other (mild diffuse urticaria) - Neuro Neuro: Alert and oriented X 3 - Psych Psych: Normal mood, Normal affect Results - Vitals Vitals: Vital Signs - 24 hr 10/04/21 10/04/21 20:04 21:06 Temperature 36.4 C L 36.5 C Heart Rate 94 81 Respiratory 16 17 Rate Blood Pressure 147/102 H 121/96 H O2 Saturation 97 99 Oxygen O2 Source Room air PD MEDICAL DECISION MAKING - ED course Complexity details: considered differential, d/w patient ED course: 71-year-old male with what appears to be a mild allergic reaction to his allergy shot today. Will place on prednisone. No evidence of anaphylaxis. No airway involvement. We will also prescribe cough medication for home for his chronic ongoing cough. He will follow up with his doctor for further care. Patient counseled regarding signs and symptoms for which I believe and urgent re-e valuation would be necessary. Patient with good understanding of and agreement to plan and is comfortable going home at this time This document was made in part using voice recognition software. While efforts are made to proofread this document, sound alike and grammatical errors may occur. Departure - Departure Disposition: 01 Home, Self Care Clinical Impression: Cough Allergic reaction Qualifiers: Encounter type: initial encounter Qualified Code(s): T78.40XA - Allergy, unspecified, initial encounter Condition: Good Instructions: ED Drug React Allergic Follow-Up: Kennedy Norton DO [Primary Care Provider] - Within 1 week Prescriptions: predniSONE [Deltasone] 40 mg PO DAILY #10 tablet Guaifenesin/Dextromethorphan [Robitussin Cough-Chest Dm Liq] 10 ml PO Q6H PRN #1 bottle PRN Reason: Cough Comments: Your prescriptions were sent to [facility] in [place]. Please follow-up with your doctor as needed for further care. Return if you worsen. 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 Discharge Date/Time: 10/04/21 21:11
[2021-10-04 21:07] VITALS: BP 121/96
== END 2021-10-04 21:11 | disposition home or self-care (01) ==
LOC: ED 19:53
DX: T78.40XA Allergy, unspecified, initial encounter (principal); R05.9 Cough, unspecified
CPT/HCPCS: 99282; 99283; J7512

== ENCOUNTER 2021-11-01 13:42 | Outpatient (CLI) | payer MEDICARE, OTHER ==
[2021-11-01] MEDS ORDERED: GADOBUTROL 10 MMOL/10 ML VIAL ONE (15:05)
[2021-11-01] MEDS ORDERED: GADOBUTROL 10 MMOL/10 ML VIAL IVP ONE (16:32)
--- NOTE | 2021-11-01 18:02 | MRI Report ---
PROCEDURE: Brain W/WO INDICATIONS: ATAXIA CEREBELLAR, HAND NUMBNESS CONTRAST: IV CONTRAST: Gadavist ml: 7.8 TECHNIQUE: Noncontrast axial T1 spin echo, axial T2 fast spin echo, sagittal and axial FLAIR, coronal T2 fast sp in echo, axial gradient echo, axial diffusion and ADC through the brain. After the administration of contrast, axial and coronal T1 spin echo with fat saturation through the brain. COMPARISON: Correlation is made with prior head and neck CT angiograms, 10/02/2021. FINDINGS: Image quality: Excellent. CSF spaces: Basal cisterns are patent. No extra-axial fluid collections. Ventricles are normal in size and shape. Brain: No midline shift. No intracranial bleeds or masses. No abnormal intracranial enhancement. There is mild cerebral volume loss. There is periventricular white matter chronic small vessel ische ryan change. The brainstem appears normal. Diffusion-weighted images demonstrate no acute ischemic i nsults. No chronic ischemic insults. Normal intravascular flow voids are present. Skull and face: Calvarial marrow is normal in signal. Orbits appear normal. Sinuses: Sinuses and mastoids appear clear. IMPRESSION: No findings of acute or subacute infarction are seen. No masses or abnormal enhancement can be seen. Mild brain parenchymal volume loss and chronic small vessel ischemic change can be seen. Reviewed by: Esvin Sparks MD on 11/01/2021 5:01 PM [facility] Approved by: Esvin Sparks MD on 11/01/2021 5:01 PM [facility] Station ID: [id number]
== END 2021-11-01 13:43 | disposition home or self-care (01) ==
LOC: DI 13:42
PROVIDERS: ATTEND Family Medicine
DX: R20.2 Paresthesia of skin (principal); G11.9 Hereditary ataxia, unspecified
CPT/HCPCS: 70553; A9585